=== PATIENT | female | born 1990 ===

== ENCOUNTER 2016-09-20 12:16 | Emergency (ER) | payer OTHER ==
[~2016-09-20] VITALS: Ht 167.6 cm; Wt 60.8 kg
[2016-09-20 13:41] LABS: ABSOLUTE BASOPHIL COUNT 0 /CUMM (0.0-0.2); ABSOLUTE EOSINOPHIL COUNT 0.5 /CUMM (0.0-0.7); ABSOLUTE GRANULOCYTE CT 8.9 /CUMM (1.4-6.5); ABSOLUTE LYMPH COUNT 1.9 /CUMM (1.2-3.4); ABSOLUTE MONOCYTE COUNT 0.5 /CUMM (0.10-0.60); BASOPHIL % 0.1 % (0.0-2.0); EOSINOPHIL % 4.4 % (0-5); GRANULOCYTE % 75.1 % (42.2-75.2); HEMATOCRIT 33.6 % (37-47); MEAN CORPUSCULAR HGB 29.4 PG (27.0-31.0); MEAN CORPUSCULAR VOLUME 86.4 FL (81.0-99.0); MEAN PLATELET VOLUME 9.7 FL (7.4-10.4); PLATELET COUNT 166 /CUMM (130-400); RBC DISTRIBUTION WIDTH 13.1 % (11.5-14.5); RED BLOOD CELL CT 3.88 /CUMM (4.20-5.40); WHITE BLOOD CELL COUNT 11.9 /CUMM (4.8-10.8)
--- NOTE | 2016-09-20 14:16 | ED CARDIAC/CP/PALPITATIONS ---
History of Present Illness General Chief Complaint: General Adult Stated Complaint: SENT BY DR RÍOS FOR EVAL OF SOB 16 WEEKS PREG Source: patient, family, old records Exam Limitations: no limitations Vital Signs & Intake/Output Vital Signs & Intake/Output Vital Signs Date Time Temp Pulse Resp B/P Pulse O2 O2 Flow FiO2 Ox Delivery Rate 09/20 1441 98.6 76 18 110/84 98 Room Air 09/20 1223 99.6 81 16 109/65 100 Room Air Allergies Coded Allergies: Penicillins (UNKNOWN 09/20/16) Sulfa (Sulfonamide Antibiotics) (UNKNOWN 09/20/16) Triage Note: PT SENT IN BY DR. RÍOS FOR SOB THAT STARTED LAST EVENING. PT IS ALSO HAVING PAIN AT THE TOP OF HER RIBS ON HER LEFT SIDE AND WAS TOLD TO COME TO ED. PT IS 16 WEEKS Triage Nurses Notes Reviewed? yes Onset: several days Duration: day(s):, continues in ED Timing: recent history Quality/Severity: mild, sharp Location: left lower Radiation: no radiation Activities at Onset: none Prior Chest Pain/Card Workup: no prior chest pain Modifying Factors: Worsens With: breathing, coughing. Nitro Today/Relief: no nitro taken today Aspirin Today: no aspirin today Associated Symptoms: shortness of breath LMP (ages 10-50): 16 weeks : Yes Patient currently breastfeeds: No HPI: Several days prior to admission patient complains of left lower chest pain that is sharp mild nonradiating occurring with deep breath and cough turning bending. She complains of being short of breath with exertion not at rest. He denies fever chills cough nausea vomiting diarrhea headache dysuria rash bleeding calf tenderness swelling. 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 Past History Travel History Traveled to [place] past 21 day No Medical History Any Pertinent Medical History? none Surgical History Surgical History: non-contributory Psychosocial History Tobacco Use: Never used ETOH Use: denies use Illicit Drug Use: denies illicit drug use Family History Hx Contributory? No Review of Systems Review of Systems Constitutional: Reports: no symptoms. EENTM: Reports: no symptoms. Respiratory: Reports: see HPI, short of breath. Cardiovascular: Reports: see HPI, chest pain. GI: Reports: no symptoms. Genitourinary: Reports: no symptoms. Musculoskeletal: Reports: no symptoms. Skin: Reports: no symptoms. Neurological/Psychological: Reports: no symptoms. Hematologic/Endocrine: Reports: no symptoms. Immunologic/Allergic: Reports: no symptoms. All Other Systems: Reviewed and Negative Physical Exam Physical Exam General Appearance: well developed/nourished, alert, awake, anxious, mild distress, thin Head: atraumatic, normal appearance Eyes: Bilateral: normal appearance, PERRL, EOMI. Ears, Nose, Throat: normal pharynx, normal ENT inspection, hearing grossly normal Neck: normal inspection, supple, full range of motion, no midline tenderness Respiratory: normal breath sounds, chest non-tender, no respiratory distress, quiet respiration, lungs clear Cardiovascular: regular rate/rhythm, normal peripheral pulses, norml femoral pulses equa Peripheral Pulses: 4+ carotid (R), 4+ carotid (L) Gastrointestinal: normal bowel sounds, soft, non-tender, no organomegaly Back: normal inspection, normal range of motion Extremities: normal inspection, normal capillary refill, normal range of motion, no edema, no ligament instability Neurologic/Psych: no motor/sensory deficits, awake, alert, oriented x 3, normal gait, normal mood/affect, maintenance trainer II-XII nml as tested Reflexes: 2+: bicep (R), bicep (L). Skin: intact, normal color, warm/dry Lymphatic: no anterior cervical emili Core Measures ACS in differential dx? No Severe Sepsis Present: No Septic Shock Present: No Progress Differential Diagnosis: costochondritis, pneumonia, pulmonary embolism Plan of Care: Orders Procedure Date/time Status URINALYSIS 09/20 1239 Complete D-DIMER 09/20 1239 Complete COMPREHENSIVE METABOLIC PANEL 09/20 1239 Complete CBC WITHOUT DIFFERENTIAL 09/20 1239 Complete Laboratory Tests 09/20/16 1324: Urine Color YEL, Urine Clarity CLEAR, Urine pH 6.0, Ur Specific Norris 1.025, Urine Protein NEG, Urine Ketones NEG, Urine Nitrite NEG, Urine Bilirubin NEG, Urine Urobilinogen 0.2, Ur Leukocyte Esterase NEG, Ur Microscopic EXAM NOT REQUIRED, Urine Hemoglobin NEG, Urine Glucose NEG 09/20/16 1318: Anion Gap 10, Estimated GFR > 60, BUN/Creatinine Ratio 11.7, Glucose 79, Calcium 8.9, Total Bilirubin 0.4, AST 24, ALT 33, Alkaline Phosphatase 49, Total Protein 6.7, Albumin 3.6, Globulin 3.1, Albumin/Globulin Ratio 1.2, D-Dimer 579 H, CBC w Diff NO MAN DIFF REQ, RBC 3.88 L, MCV 86.4, MCH 29.4, RDW 13.1, MPV 9.7, Gran % 75.1, Lymphocytes % 15.8 L, Monocytes % 4.6, Eosinophils % 4.4, Basophils % 0.1, Absolute Granulocytes 8.9 H, Absolute Lymphocytes 1.9, Absolute Monocytes 0.5, Absolute Eosinophils 0.5, Absolute Basophils 0, PUBS MCHC 34.0 Initial ED EKG: none Comments: Patient declines further diagnostic evaluation of chest pain secondary to childcare issues. She was updated with necessary testing and likely return tomorrow morning for diagnostic completion including possible bilateral lower extremity ultrasound chest x-ray V/Q scan. Departure Departure Time of Disposition: 1435 Disposition: HOME OR SELF CARE Condition: Stable Clinical Impression Primary Impression: Chest pain syndrome Secondary Impressions: Qualifiers: Weeks of gestation: 16 weeks Qualified Code: Z3A.16 - 16 weeks gestation of Referrals: KOSTA KELLY APRN (PCP/Family) Additional Instructions: Return as discussed for further evaluation Departure Forms: Customer Survey General Discharge Information Critical Care Note Critical Care Note Critical Care Time: non-applicable
[2016-09-20 14:41] VITALS: BP 110/84
== END 2016-09-20 14:42 ==
LOC: ERH 12:16
PROVIDERS: Emergency Medicine
DX: O26.92 Pregnancy related conditions, unspecified, second trimester (principal); R07.9 Chest pain, unspecified; Z3A.16 16 weeks gestation of pregnancy
CPT/HCPCS: 81003

== ENCOUNTER 2016-09-23 09:45 | Emergency (ER) | payer OTHER ==
[~2016-09-23] VITALS: Ht 167.6 cm; Wt 60.8 kg
--- NOTE | 2016-09-23 10:00 | ED GENERAL ADULT ---
History of Present Illness General Chief Complaint: General Adult Stated Complaint: R/O DVT Source: patient Exam Limitations: no limitations Vital Signs & Intake/Output Vital Signs & Intake/Output Vital Signs Date Time Temp Pulse Resp B/P B/P Pulse O2 O2 Flow FiO2 Mean Ox Delivery Rate 09/23 0950 97.8 98 18 117/76 98 Room Air Allergies Coded Allergies: Penicillins (UNKNOWN 09/20/16) Sulfa (Sulfonamide Antibiotics) (UNKNOWN 09/20/16) Triage Note: PT STATES THAT SHE WAS SEEN HERE MONDAY FOR RIB PAIN SOB, DID BLOOD WORK. STATES THAT THE D DIMER WAS ELEVATED. PT STATES THAT PAIN IS ALMOST ALL GONE BUT HER OB WANTED HER TO COME BACK TO ER FOR US OF HER LOWER EXTREMITIES TO MAKE SURE SHE DOES NOT HAVE DVT. PT DENIES ANY PAIN IN HER LEGS AND DOES NOT FEEL SOB Triage Nurses Notes Reviewed? yes Onset: Gradual Timing: no prior history Injury Environment: home Severity: moderate Severity Numbers: 1 No Modifying Factors: none : Yes Patient currently breastfeeds: No HPI: Patient is a 26-year-old female presenting to the emergency department with chief complaint of "I'm here to rule out DVT of mild extremity ,I'm not having any pain or swelling." Patient reports that she was seen in the emergency department 5 days ago for rib pain and shortness of breath. A make sure everything was okay, she is feeling better, her d-dimer was slightly elevated to her primary care physician wanted her to come back and take it sounds of her lower extremity to make sure she didn't have a DVT. Denies abdominal pain. No vaginal discharge. Denies any urinary frequency urgency or dysuria. No nausea or vomiting. Her due date is in February. Denies headaches or visual changes. (BARB FRIEDMAN) Past History Travel History Traveled to [place] past 21 day No Medical History Any Pertinent Medical History? 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 No (BARB FRIEDMAN) Review of Systems Review of Systems Constitutional: Reports: no symptoms. Comments Review of systems: See HPI, All other systems negative. Constitutional, no chills fever or weight loss HEENT: No visual changes no sore throat no congestion Cardiovascular: No chest pain ,palpitation , orthopnea or ankle swelling Skin, no jaundice no rashes Respiratory: No dyspnea cough sputum or hemoptysis GI: No nausea no vomiting : No dysuria No hematuria Muscle skeletal: no back pain, no neck pain, Neurologic: No numbness no confusion Psych: No stress anxiety or depression,. Heme/endocrine: No bruising no bleeding no polyuria or polydipsia Immunology: No splenectomy or history of AIDS (BARB FRIEDMAN) Physical Exam Physical Exam General Appearance: well developed/nourished, no apparent distress, alert, awake , comfortable Comments: Well-developed well-nourished person in no acute distress HEENT: Pupils equally round and reactive to light and accommodation. Nose is atraumatic. Neck: Normal inspection Back: Nontender, no CVA tenderness. Cardiovascular: Regular rate and rhythms no murmurs rubs or gallops, normal JVP Respiratory: Chest nontender. No respiratory distress.breath sounds clear to auscultation bilaterally Extremity: No edema, no calf tenderness to palpation, normal and equal pedal pulses. Full range of motion of all extremities without difficulty or pain. Neuro: Alert oriented x3, motor sensory normal Skin: No appreciable rash on exposed skin, skin is warm and dry. Psych: Mood and affect is normal, memory and judgment is normal. Core Measures ACS in differential dx? No CVA/TIA Diagnosis: No Severe Sepsis Present: No Septic Shock Present: No (BARB FRIEDMAN) Progress Differential Diagnoses I considered the following diagnoses in my evaluation of the patient: DVT, Canales's cyst, muscle strain, dehydration, muscle cramps Plan of Care: Orders Procedure Date/time Status URINALYSIS 09/23 1123 Complete Laboratory Tests 09/23/16 1148: Urine Color YEL, Urine Clarity CLEAR, Urine pH 6.0, Ur Specific Ambrose 1.020, Urine Protein NEG, Urine Ketones NEG, Urine Nitrite NEG, Urine Bilirubin NEG, Urine Urobilinogen 0.2, Ur Leukocyte Esterase NEG, Ur Microscopic EXAM NOT REQUIRED, Urine Hemoglobin NEG, Urine Glucose NEG Initial ED EKG: none Comments: 09/23/2016 12:15:56 PM patient is asymptomatic. No findings on exam. Blood pressure is within normal range. Ultrasound is negative for bilateral DVT. There is a small Canales cyst noted on ultrasound of the left popliteal region. Patient will follow up with [facility]. Urinalysis is unremarkable. d/w dr singleton and she agrees with plan. (MARINO CALHOUN,BARB) Departure Departure Time of Disposition: 1208 Disposition: HOME OR SELF CARE Condition: Stable Clinical Impression Primary Impression: Leg pain Qualifiers: Laterality: bilateral Qualified Codes: M79.604 - Pain in right leg; M79.605 - Pain in left leg Referrals: KOSTA KELLY APRN (PCP/Family) Additional Instructions: Follow-up with your [facility] call to make an appointment. Return for worsening symptoms or concerns. PATIENT: PERNELL VARELA PRESENT AGE: 26 PATIENT ACCOUNT NO: [id number] : 88 LOCATION: [facility] ORDERING PHYSICIAN: BARB CALHOUN SERVICE DATE: 09/23/16100 EXAM TYPE: US - US-EXT BILAT VENOUS DOPPLER EXAMINATION: US TRIPLEX LOWER EXTREMITY, BILATERAL CLINICAL INFORMATION: History of chest pain and shoulder pain 16 weeks . Questionable sickle cell trait. COMPARISON: None TECHNIQUE: Color-flow triplex imaging with spectral analysis and compression Doppler were performed on the bilateral lower extremities. FINDINGS: Respiratory variation, normal compression and augmented flow are noted throughout the bilateral lower extremities. The visualized common femoral vein, superficial femoral vein, profunda femoral vein, popliteal vein and midcalf peroneal and posterior tibial venous segments provided on the static images show no evidence of deep venous thrombosis. There is a small Canales's cyst on the left side. IMPRESSION: 1. No evidence of deep venous thrombosis. 2. Small left-sided Canales's cyst. DICTATED BY: IRINA ROSALES MD DATE/TIME DICTATED:09/23/161043 FOOD CONSULTANT:VIOLETTE DATE/TIME TRANSCRIBED:09/23/161043 CONFIDENTIAL, DO NOT COPY WITHOUT APPROPRIATE AUTHORIZATION. <Electronically signed in Other Vendor System> SIGNED BY: IRINA ROSALES MD [id number] Departure Forms: Customer Survey General Discharge Information (BARB FRIEDMAN) PA/EDUCATION PROFESSIONAL Co-Sign Statement Statement: ED Attending supervision documentation- [] I saw and evaluated the patient. I have also reviewed all the pertinent lab results and diagnostic results. I agree with the findings and the plan of care as documented in the PA's/EDUCATION PROFESSIONAL's documentation. [X] I have reviewed the ED Record and agree with the PA's/EDUCATION PROFESSIONAL's documentation. [] Additions or exceptions (if any) to the PAs/EDUCATION PROFESSIONAL's note and plan are summarized below: [] (PROSPER LEVINE,GAYATHRI) Critical Care Note Critical Care Note Critical Care Time: non-applicable (BARB FRIEDMAN)
--- NOTE | 2016-09-23 11:37 | ULTRASOUND REPORT ---
EXAMINATION: US TRIPLEX LOWER EXTREMITY, BILATERAL CLINICAL INFORMATION: History of chest pain and shoulder pain 16 weeks . Questionable sickle cell trait. COMPARISON: None TECHNIQUE: Color-flow triplex imaging with spectral analysis and compression Doppler were performed on the bilateral lower extremities. FINDINGS: Respiratory variation, normal compression and augmented flow are noted throughout the bilateral lower extremities. The visualized common femoral vein, superficial femoral vein, profunda femoral vein, popliteal vein and midcalf peroneal and posterior tibial venous segments provided on the static images show no evidence of deep venous thrombosis. There is a small Canales's cyst on the left side. IMPRESSION: 1. No evidence of deep venous thrombosis. 2. Small left-sided Canales's cyst.
[2016-09-23 12:18] VITALS: BP 120/80
== END 2016-09-23 12:18 ==
LOC: ERH 09:45
DX: O99.89 Other specified diseases and conditions complicating pregnancy, childbirth and the puerperium (principal); M79.604 Pain in right leg; M79.605 Pain in left leg; Z3A.00 Weeks of gestation of pregnancy not specified
CPT/HCPCS: 81003; 93970